=== PATIENT | male | born 1960 | race Caucasian/White ===

== ENCOUNTER 2020-07-21 13:32 | Outpatient (CLI) | payer OTHER, SELFPAY ==
--- NOTE | ~2020-07-21 | XR_ITS ---
XR shoulder LT min 2V 07/21/2020 14:01 Indication: Shoulder pain Procedure: 4 views left shoulder Comparison: No prior studies for comparison. Findings: No fracture or traumatic malalignment. No significant soft tissue abnormality. No foreign b odies. There is anatomic alignment. No erosive changes. No focal soft tissue abnormality. No foreign bodies. Impression: 1: No significant bone or joint abnormality. Reviewed, dictated and finalized at location B. [employer] Impression: 1: No significant bone or joint abnormality.
== END 2020-07-21 13:33 | disposition home or self-care (01) ==
PROVIDERS: PCP Family Medicine; Visit Provider Family Medicine
DX: M25.512 Pain in left shoulder (principal)
CPT/HCPCS: 73030

== ENCOUNTER 2020-10-20 08:19 | Outpatient (CLI) | payer OTHER, SELFPAY ==
--- NOTE | 2020-10-20 08:34 | ECHO_ITS ---
Patient Info Name: Ovi Bullock Age: 60 years : 1960 Gender: Male Ht: 66 in Wt: 155 lbs BSA: 1.82 m2 HR: 49 bpm BP: 138 / 78 mmHg Technical Quality: Good Exam Date: 10/20/2020 8:50 AM Exam Location: [facility] Patient Status: Outpatient Admit Date: 10/20/2020 Staff Ordering Physician: Greyson Truong MD Photoengraving Sketch Maker: Rica Benoit RDCS Attending Provider: Greyson Truong MD Referring Physician: Alexi ROSE; Exam Type: CA echo doppler color flow Study Info Indications - retinal ischemia Complete two-dimensional, color flow and Doppler transthoracic echocardiogram is performed. Summary 1. Complete two-dimensional, color flow and Doppler transthoracic echocardiogram is performed. 2. Left ventricular chamber dimension is normal. 3. The left ventricular diastolic function is normal. 4. Left ventricular systolic function is normal, estimated at 55-60%. 5. E/e' 7 is not elevated. 6. Global longitudinal strain is normal at -19.1%. 7. There is trace tricuspid valve regurgitation. 8. No pulmonary hypertension, estimated pulmonary arterial systolic pressure is 21 mmHg. 9. There is trace pulmonic regurgitation. Left Ventricle E/e' 7 is not elevated. Global longitudinal strain is normal at -19.1%. Left ventricular chamber dimension is normal. Left ventricular systolic function is normal, estimated at 55-60%. The left ventricular diastolic function is normal. Right Ventricle Right ventricular chamber dimension is normal. Right ventricular systolic function is normal. Left Atria Left atrial chamber dimension is normal. Right Atria Right atrial chamber dimension is normal. Aortic Valve The aortic valve is trileaflet. There is no aortic valve stenosis. There is no aortic valve regurgitation. Pulmonic Valve There is trace pulmonic regurgitation. Mitral Valve There is no mitral valve stenosis. There is no mitral valve regurgitation. Tricuspid Valve There is trace tricuspid valve regurgitation. No pulmonary hypertension, estimated pulmonary arterial systolic pressure is 21 mmHg. Pericardium/Pleural There is no pericardial effusion. Inferior Vena Cava Normal inferior vena cava with >50% collapse upon inspiration consistent with normal right atrial pressure, 5 mmHg. Aorta The aortic root size at the sinus of Valsalva is normal. Left Ventricular Outflow Tract Name Value Normal LVOT 2D LVOT Diameter 2.1 cm LVOT Doppler LVOT Peak Gradient 5 mmHg LVOT Mean Gradient 2 mmHg LVOT VTI 23 cm LVOT VTI/AV VTI Ratio 0.9 LVOT Stroke Volume 80 ml LVOT CO 14.6 l/min LVOT CI 8.0 l/min/m2 Pulmonic Valve Name Value Normal PV Doppler
== END 2020-10-20 08:20 | disposition home or self-care (01) ==
PROVIDERS: PCP Family Medicine; Visit Provider Family Medicine
DX: H35.82 Retinal ischemia (principal)
CPT/HCPCS: 93306

== ENCOUNTER → 2020-10-26 14:50 | Outpatient (CLI) | payer OTHER, SELFPAY ==
--- NOTE | ~2020-10-26 | MR_ITS ---
EXAMINATION: MR shoulder LT wo con DATE: 10/26/2020 15:27 INDICATION: Left shoulder pain. TECHNIQUE: Magnetic resonance imaging (MRI) of the left shoulder was performed without intravenous co ntrast. Sequences included axial PD-weighted FS FSE, coronal oblique PD-weighted FS FSE and T2-weight ed FS FSE, and sagittal oblique T2-weighted FS FSE and T1-weighted FSE. COMPARISON: Left shoulder radiographs 07/21/2020 FINDINGS: Coracoacromial arch: The acromion undersurface is curved in morphology (type II). There is severe acromioclavicular joint osteoarthritis. There is mild subacromial/subdeltoid bursitis. Rotator cuff: There is moderate supraspinatus and infraspinatus tendinopathy. Teres minor tendon is normal. There i s severe subscapularis tendinopathy with distal bursal-sided partial-thickness tear. There is bone ma rrow edema in lesser tuberosity. There is no asymmetric fatty atrophy of the rotator cuff muscle chinchilla ies. Biceps tendon and glenoid labrum: Biceps tendon is in bicipital groove. There is mild intra-articular biceps tendinopathy. There is a t ear of superior labrum from 11:00 to 1:00 (SLAP tear). Fluid: There is no glenohumeral joint effusion. Bones/cartilage: Glenoid cartilage is normal. There is partial-thickness cartilage loss of inferior humeral head with mild subchondral edema-like marrow signal intensity. IMPRESSION: 1. Bursal-sided, partial-thickness tear of subscapularis tendon. 2. Mild glenohumeral joint chondrosis. SLAP tear. 3. Severe acromioclavicular joint osteoarthritis. 4. Mild subacromial/subdeltoid bursitis. Reviewed, dictated and finalized at location A.
== END ==
PROVIDERS: PCP Family Medicine; Visit Provider Orthopaedic Surgery
DX: S46.912A Strain of unspecified muscle, fascia and tendon at shoulder and upper arm level, left arm, initial encounter (principal); S43.432A Superior glenoid labrum lesion of left shoulder, initial encounter; M19.012 Primary osteoarthritis, left shoulder; M75.52 Bursitis of left shoulder
CPT/HCPCS: 73221

== ENCOUNTER → 2021-04-10 10:57 | Outpatient (CLI) | payer OTHER, SELFPAY ==
--- NOTE | ~2021-04-10 | US_ITS ---
EXAMINATION: US carotid duplex BI DATE: 04/10/2021 11:39 INDICATION: Retinal ischemia with subjective visual disturbance. TECHNIQUE: Grayscale, color Doppler, and pulsed Doppler images of the cervical carotid arteries were obtained. The degree of vessel stenosis is placed in one of the following categories: normal, <50%, 5 0-69%, >=70% but less than near-occlusion, near-occlusion, or total occlusion. Note that percent sten osis relative to normal distal artery lumen diameter is indirectly measured from velocity measurement s as described by Magnus, et al. Radiology 2003; 229:340-346. COMPARISON: None. FINDINGS: RIGHT: The right common carotid artery (CCA) peak systolic velocity (PSV) is 86 cm/s. The right internal car otid artery (ICA) PSV is 70 cm/s. The right ICA end-diastolic velocity (EDV) is 23 cm/s. The right IC A/CCA PSV ratio is 0.8. Grayscale and color Doppler images yield an estimate of <50% diameter reducti on from plaque in the ICA. The external carotid artery (ECA) PSV is 114 cm/s. There is antegrade flow in the right vertebral artery. LEFT: The left CCA PSV is 126 cm/s. The left ICA PSV is 88 cm/s. The left ICA EDV is 26 cm/s. The left ICA/ CCA PSV ratio is 0.7. Grayscale and color Doppler images yield an estimate of <50% diameter reduction from plaque in the ICA. The ECA PSV is 104 cm/s. There is antegrade flow in the left vertebral arter y. IMPRESSION: 1. <50% stenosis in the right internal carotid artery. 2. <50% stenosis in the left internal carotid artery. Reviewed, dictated and finalized at location A.
== END ==
PROVIDERS: PCP Family Medicine; Visit Provider Family Medicine
DX: I65.23 Occlusion and stenosis of bilateral carotid arteries (principal)
CPT/HCPCS: 93880

== ENCOUNTER 2021-12-20 01:09 | Day surgery (SDC) | payer OTHER, SELFPAY ==
[2021-11-28 12:34] VITALS: BMI 25.9
--- NOTE | 2021-12-19 12:45 | P.PNAN_ITS ---
Anes - Initial Pre Proc Eval Procedure: Operation Date: 12/20/21 08:00 Proposed Procedures p Screening Colonoscopy - Jose Varela MD Date/Time: 12/19/21 12:45 Surgeon: Jose Varela MD Pre Op Diagnosis: neoplasm screening Patient Data Age: 61 Gender: M Height: 1.68 m Weight: 73 kg Allergies Allergy/AdvReac Type Severity Reaction Status Date / Time No Known Allergies Allergy Verified 11/28/21 12:34 Home Medications Medication Instructions Recorded Confirmed Type multivitamin (Daily Multi-Vitamin 1 tablet PO DAILY 09/05/20 11/28/21 History tablet) atorvastatin 10 mg tablet 10 mg PO DAILY #90 tabs 08/08/21 11/28/21 Rx loratadine 10 mg tablet (Claritin) 10 mg PO DAILY PRN allergic 11/06/21 11/28/21 History symptoms sodium sul 1.479 gram-potas ch See Rx Instructions PO PER PKG DIR 11/09/21 Rx 0.188 gram-magnes sul 0.225 gram #24 tabs tablet (Sutab) Patient hx anesthesia problems: none Family hx anesthesia problems: none Results Review: All pre-operative results and documents have been reviewed as part of the pre- operative evaluation. 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 Carotid Doppler study on 04/10/2021 unremarkable with less than 50% lesion bilaterally Overweight (BMI 25.0-29.9) 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 Family History Family History Grandparent Family history of cardiovascular disease, Onset Age: 60 Father Family history of lung cancer, Onset Age: 85 Social History Social History (Reviewed 11/06/21 @ 16:01 by RIKY Cooney Smoking status: Never smoker Alcohol intake: current Drinks per week: 2 Substance use: never Substance use type: does not use Living arrangements: with family Spiritual care concerns: No Anes - Eval Final PreProcedure Day of Procedure 12/19/21 12:45 Patient weight: overweight Heart: regular rate and rhythm Lungs: clear to auscultation and normal air movement Airway: Mallampati scale class II Neurological: alert and oriented Last oral intake: >/= 8 hours ASA classification: II Emergent: no Anesthetic plan: proceed Anesthesia type and monitoring: general GIVS Results Review: All pre-operative results and documents have been reviewed as part of the pre- operative evaluation. Informed Consent: The patient's anesthetic plan and its attendant risks and benefits were discussed with the patient/family/POA. Questions were solicited and answers provided to the satisfaction of the patient/family/POA.
[2021-12-20 06:48] VITALS: BP 135/79; PULSE 49; RESP 18; TEMP 36.6; O2SAT 100
[2021-12-20] MEDS: LACTATED RINGERS 1,000 ML 150 ML IV CONT (06:54)
--- NOTE | 2021-12-20 07:56 | PM.IMHP ---
H&P: HPI History of Present Illness Date/Time: 12/20/21 07:56 Chief Complaint: Neoplasia screening. Narrative: This is a 61-year-old white male patient presents for screening colonoscopy. Patient reports his current weight appetite bowel movements are normal. He denies abdominal pain. Patient has had no bleeding. Family history is noncontributory. Previous colonoscopy 10 years ago was unremarkable. Patient presents today for screening colonoscopy. Review of Systems Review of Systems: Review of systems noncontributory. 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 Carotid Doppler study on 04/10/2021 unremarkable with less than 50% lesion bilaterally Overweight (BMI 25.0-29.9) 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 Family History Family History Grandparent Family history of cardiovascular disease, Onset Age: 60 Father Family history of lung cancer, Onset Age: 85 Social History Social History Smoking status: Never smoker Alcohol intake: current Drinks per week: 2 Substance use: never Substance use type: does not use Living arrangements: with family Spiritual care concerns: No Meds Home Medications and Allergies Home Medications Medication Instructions Recorded Confirmed Type multivitamin (Daily Multi-Vitamin 1 tablet PO DAILY 09/05/20 11/28/21 History tablet) atorvastatin 10 mg tablet 10 mg PO DAILY #90 tabs 08/08/21 11/28/21 Rx loratadine 10 mg tablet (Claritin) 10 mg PO DAILY PRN allergic 11/06/21 11/28/21 History symptoms sodium sul 1.479 gram-potas ch See Rx Instructions PO PER PKG DIR 11/09/21 Rx 0.188 gram-magnes sul 0.225 gram #24 tabs tablet (Sutab) Allergies Allergy/AdvReac Type Severity Reaction Status Date / Time No Known Allergies Allergy Verified 11/28/21 12:34 Vital Signs Vital Signs - 24 hr 12/20/21 06:48 Temperature 97.9 F Pulse Rate 49 L Respiratory Rate 18 Blood Pressure 135/79 Pulse Oximetry 100 Oxygen Delivery Room Air Exam Narrative: Physical exam reveals patient be alert. Vital signs stable. HEENT exam is unremarkable. Patient is anicteric. Lungs are clear to auscultation and percussion. Heart is without murmur or extra sounds. Abdominal exam bowel sounds are present soft nontender with no organomegaly. Digital external rectal exam is normal. Assessment and Plan Assessment and plan (1) Encounter for screening colonoscopy: Code(s): Z12.11 - Encounter for screening for malignant neoplasm of colon Status: Acute Assessment and Plan: Patient presents today for screening colonoscopy. He appears to be at average risk for colon polyps.
[2021-12-20] MEDS: SIMETHICONE ORAL SUSPENSION 20 MG/0.3 ML 30 ML BOTTLE 0.6 ML IRRIGATION (08:14)
[2021-12-20 08:25] VITALS: BP 99/60; PULSE 42; RESP 13; O2SAT 98
[2021-12-20 08:35] VITALS: BP 112/62; PULSE 40; RESP 13; O2SAT 100
[2021-12-20 08:45] VITALS: BP 112/77; PULSE 41; RESP 20; O2SAT 100
== END 2021-12-20 08:49 | disposition home or self-care (01) ==
PROVIDERS: PCP Family Medicine; Visit Provider Internal Medicine Gastroenterology
PROC: 0DJD8ZZ Inspection of Lower Intestinal Tract, Via Natural or Artificial Opening Endoscopic (ICD-10-PCS; CPT 45378; principal; 2021-12-20 08:00)
DX: Z12.11 Encounter for screening for malignant neoplasm of colon (principal); D12.5 Benign neoplasm of sigmoid colon; K64.8 Other hemorrhoids; E78.2 Mixed hyperlipidemia; Z86.16 Personal history of COVID-19
CPT/HCPCS: 45385; 88305; J2704; J7120

== ENCOUNTER 2023-08-05 10:39 | Emergency (ER) | payer OTHER, SELFPAY ==
--- NOTE | ~2023-08-05 | XR_ITS ---
EXAMINATION: XR knee RT min 4V DATE: 08/05/2023 11:12 INDICATION: Medial right knee pain. TECHNIQUE: 4 views of right knee including standing views were obtained. COMPARISON: None. FINDINGS: Bone alignment is normal. No fracture. There is mild osteoarthritis of lateral and patellof emoral compartments. No knee joint effusion. IMPRESSION: 1. Mild right knee osteoarthritis. Reviewed, dictated and finalized at location A. [employer]
[2023-08-05 10:52] VITALS: BP 116/71; PULSE 50; RESP 16; TEMP 36.6; O2SAT 96
--- NOTE | 2023-08-05 10:54 | ED.GENADULT ---
HPI - General Adult General Chief complaint: Extremity Problem,Nontraumatic Stated complaint: rt knee pain Source: patient, RN notes reviewed and old records reviewed Mode of arrival: ambulatory Limitations: no limitations History of Present Illness HPI narrative: 63-year-old male patient presents to [facility] with complaints right knee intermittent pain. Patient states started Friday when patient was jogging, patient states stopped to wait for car and was walking and felt knee give out but patient denies falling. Patient states call PCP and talked to the nurse who told to come here for an x-ray. Patient has not tried anything for symptoms. Patient states ran 6 miles on Friday without difficulty. Related Data Home Medications Medication Instructions Recorded Confirmed multivitamin (Daily Multi-Vitamin 1 tablet PO DAILY 09/05/20 08/05/23 tablet) loratadine 10 mg tablet (Claritin) 10 mg PO DAILY PRN allergic 11/06/21 08/05/23 symptoms Allergies Allergy/AdvReac Type Severity Reaction Status Date / Time No Known Allergies Allergy Verified 08/05/23 10:48 Review of Systems Constitutional: Constitutional: Reports no additional constitutional complaints, Denies body ache(s), Denies chills, Denies fatigue, Denies fever(s) and Denies headache(s) Eyes: Eyes: Reports no additional eye complaints and Denies blurry vision ENT: Reports system reviewed and no additional complaints, except as documented, Denies vertigo, Denies dizziness, Denies ear discharge, Denies otalgia, Denies facial pain, Denies headache(s), Denies nasal congestion, Denies nasal discharge, Denies sinus pain, Denies sinus pressure and Denies sore throat Cardiovascular: Cardiovascular: Reports no additional cardiovascular complaints, Denies chest pain, Denies chest pain at rest, Denies rapid heart rate and Denies dyspnea Respiratory: Respiratory: Reports no additional respiratory complaints, Denies chest congestion, Denies cough, Denies pain on inspiration, Denies pain with cough and Denies dyspnea Gastrointestinal: Gastrointestinal: Denies abdominal pain, Denies diarrhea, Denies nausea and Denies vomiting Musculoskeletal: Musculoskeletal: Reports arthralgias Comments: intermittent Right knee pain Integumentary/Breasts: Skin/Breast: Denies rash Neurologic: Reports system reviewed and no additional complaints, except as documented, Denies vertigo, Denies dizziness and Denies headache(s) Endocrine: Endocrine: Denies fatigue PMFSH Past Medical History Medical History Acute sinusitis, unspecified Chronic left shoulder pain Colon cancer screening COVID-19 March, COVID-19 (~06/2021) 2nd episode mild symptoms, fully vaccinated Elevated TSH TSH normal at 3.97 on 04/14/2023. Encounter for wellness examination in adult Loss, sense of, smell Mixed hyperlipidemia total cholesterol 199, HDL excellent and 82, triglycerides 74 and LDL 101 on work physical labs on 04/16/2021 with glucose 100. Cholesterol 182, triglycerides 58, HDL 70, LDL 70 with ratio of 2.6 on 04/14/2023. 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 Seborrheic keratosis. Ocular ischemic syndrome Carotid Doppler study on 04/10/2021 unremarkable with less than 50% lesion bilaterally Overweight (BMI 25.0-29.9) Polyp of colon (12/20/21) small sessile polyp, tubular adenoma,of the sigmoid colon on colonoscopy 12/20/[address] Varela with repeat colonoscopy in 2 years. 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
== END 2023-08-05 11:26 | disposition home or self-care (01) ==
PROVIDERS: Emergency Provider Registered Nurse; PCP Family Medicine
DX: M17.11 Unilateral primary osteoarthritis, right knee (principal); E78.5 Hyperlipidemia, unspecified; Z85.828 Personal history of other malignant neoplasm of skin; Z86.16 Personal history of COVID-19
CPT/HCPCS: 73564; 99213; G0463

== ENCOUNTER 2023-09-26 07:04 | Outpatient (CLI) | payer OTHER, SELFPAY ==
--- NOTE | ~2023-09-26 | MR_ITS ---
MRI of the right knee Clinical history: Effusion Technique: Coronal proton density and proton density-weighted images, sagittal proton-density and T2 fat-sat images, and axial proton-density fat-saturated images were acquired. Findings: Anterior and posterior cruciate ligaments are intact. Medial collateral ligament and the la teral collateral ligament complex are intact. Popliteus tendon is intact. Medial and lateral menisci are intact, without evidence of tear. 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 Articular cartilage in the lateral compartment is relat ively well-preserved. Articular cartilage in the patellofemoral compartment is also well preserved. Extensor mechanism is intact. No significant joint effusion or 's cyst. Impression: 1.4 x 1.3 cm grade 4 chondral lesion at the central aspect of the medial femoral condyle with subjace nt reactive marrow edema. Reviewed, dictated and finalized at location . Impression: 1.4 x 1.3 cm grade 4 chondral lesion at the central aspect of the medial femora l condyle with subjacent reactive marrow edema.
== END 2023-09-26 07:05 ==
LOC: MICIMG 07:05
PROVIDERS: PCP Family Medicine; Visit Provider Orthopaedic Surgery
DX: M25.461 Effusion, right knee (principal); M94.261 Chondromalacia, right knee
CPT/HCPCS: 73721

== ENCOUNTER 2024-10-11 13:00 | Emergency (ER) | payer OTHER, SELFPAY ==
[2024-10-11 13:09] VITALS: BP 99/77; PULSE 77; RESP 20; TEMP 36.8; O2SAT 98
--- NOTE | 2024-10-11 16:26 | ED_ITS ---
HPI - URI/Sore Throat General Chief Complaint: Upper Respiratory Infection Stated Complaint: Cough Time Seen by Provider: 10/11/24 13:50 Source: patient and RN notes reviewed Mode of arrival: ambulatory Limitations: no limitations History of Present Illness HPI Narrative: 64-year-old male presents Express Care complaining of cough and congestion for 6 weeks. Patient thought it was allergies however his symptoms are not getting any better. States his congestion feels worse. Patient reports a dry nonproductive cough. Patient says worse at night when he is lying flat. Patient has not been using anything [id number]. Patient denies any other upper respiratory symptoms, fevers, chills, body aches. Related Data Home Medications ?Medication ?Instructions ?Recorded ?Confirmed ?Last Taken ?Type multivitamin (Daily Multi-Vitamin 1 tablet PO DAILY 09/05/20 06/29/24 Unknown History tablet) loratadine 10 mg tablet (Claritin) 10 mg PO DAILY PRN allergic 11/06/21 06/29/24 Unknown History symptoms acetaminophen 500 mg tablet mg 10/11/24 Unknown History aspirin 81 mg tablet,delayed mg 10/11/24 Unknown History release meloxicam 15 mg tablet mg 10/11/24 Unknown History pantoprazole 20 mg tablet,delayed mg PO 10/11/24 Unknown History release pregabalin 75 mg capsule mg 10/11/24 Unknown History Allergies Allergy/AdvReac Type Severity Reaction Status Date / Time No Known Allergies Allergy Verified 10/11/24 13:26 Review of Systems Review of Systems: CONSTITUTIONAL: Denies fever, chills, or sweats. EYES: Denies visual changes, redness, or discharge. ENT: Denies rhinorrhea, sore throat, or otalgia. Positive for congestion CARDIOVASCULAR: Denies chest pain, palpitations, or edema. RESPIRATORY: Positive for cough. Negative for dyspnea. GASTROINTESTINAL: Denies abdominal pain, nausea, vomiting, or diarrhea. GENITOURINARY: Denies dysuria or hematuria. SKIN: Denies rash or itching. MUSCULOSKELETAL: Denies back pain, joint pain, or myalgia. NEUROLOGIC: Denies headache, numbness, or weakness. PSYCHIATRIC: Denies anxiety or depression. All other systems reviewed are negative, except as documented in HPI. [facility] Past Medical History Medical History BMI 27.0-27.9,adult Osteoarthritis of right knee Polyp of colon (12/20/21) small sessile polyp, tubular adenoma,of the sigmoid colon on colonoscopy 12/20/[address] Varela with repeat colonoscopy in 2 years. 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 Seborrheic keratosis. 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 TSH elevated at 6.85 on 06/03/2024. Encounter for wellness examination in adult COVID-19 March, Acute sinusitis, unspecified Loss, sense of, smell Suspicious nevus Mixed hyperlipidemia total cholesterol 199, HDL excellent and 82, triglycerides 74 and LDL 101 on work physical labs on 04/16/2021 with glucose 100. Cholesterol 182, triglycerides 58, HDL 70, LDL 70 with ratio of 2.6 on 04/14/2023. Cholestero l 190, HDL 59, triglycerides 98, LDL 111 with ratio 3.2 on 06/03/2024. Family History Family History Grandparent Family history of cardiovascular disease, Onset Age: 60 Father Family history of lung cancer, Onset Age: 85 Social History Social History Smoking status: Never smoker Alcohol intake: current Drinks per week: 2 Substance use: never Substance use type: does not use Lack of Transportation: No Current Housing: Decline to Answer Concerned About Future Housing: Decline to Answer Difficulty Paying Gas/Electric Bills: Decline to Answer Difficulty Paying for Meds: Decline to Answer Currently Unemployed: Decline to Answer Education: Decline to Answer Difficulty w/ Childcare or Family Care: Decline to Answer Living arrangements: with family Spiritual care concerns: No Comments At the time of my signature, I reviewed and agree with the nursing past medical, surgical, social, and family history. There is no relevant family history pertinent to the patient complaint. Exam Narrative: GENERAL: This is a well-nourished, well-developed adult, in no apparent distress. They are non ill-appearing, nontoxic appearing. HEAD: normocephalic, atraumatic. EYES: Sclera clear/white. Conjunctiva normal. Vision is grossly intact. Extraocular movements intact EARS: External ears normal, auditory canals clear and without drainage, TMs normal without perforation. Hearing grossly intact. NOSE: External nose normal with no obvious nasal discharge, nasal turbinates erythematous, no rhinorrhea. Maxillary sinus tenderness to palpation. THROAT: Mucous membranes moist, posterior pharynx clear, without erythema or swelling. Uvula midline. Postnasal drip present. NECK: Neck supple, non-tender without lymphadenopathy, masses or thyromegaly. CARDIOVASCULAR: Regular rate and rhythm without murmurs, gallops, or rubs. RESPIRATORY: Clear to auscultation. Breath sounds equal bilaterally. No wheezes, rales, or rhonchi. SKIN: warm, Dry, intact with no suspicious lesions or rash, good texture and turgor. NEURO: awake, alert, and oriented to person, place and time. There were no obvious focal neurologic abnormalities. EXTREMITIES: No joint tenderness, effusion, or edema noted. BACK: Nontender without deformity. No CVA tenderness. Course Course Emergency Course: Portions of this record may have been created with voice recognition software Level of Care: Express Care Visit Vital Signs Vital signs: Vital Signs Oxygen Delivery Room Air 10/11/24 13:05 Temperature 98.3 F 10/11/24 13:09 Pulse Rate 77 10/11/24 13:09 Respiratory Rate 20 10/11/24 13:09 Blood Pressure 99/77 L 10/11/24 13:09 Pulse Oximetry 98 10/11/24 13:09 Oxygen Delivery Room Air 10/11/24 13:09 Reviewed MDM - URI/Sore Throat MDM Narrative Medical decision making narrative: Given patient's length of symptoms and physical exam findings it is likely the patient has a bacterial sinusitis. Will treat empirically with Augmentin. Discussed physical exam findings. Advised supportive measures and signs/symptoms to go to the ER. Pt is appropriate for outpt treatment and f/u. Differential Diagnosis Differential diagnosis: Likely upper respiratory infection, sinusitis and bronchitis Critical Care Time Critical Care Time Critical Care Time: No Discharge Plan Discharge Clinical Impression: Sinusitis Qualifiers: Sinusitis location: unspecified location Chronicity: acute Recurrence: not specified as recurrent Qualified Code(s): J01.90 - Acute sinusitis, unspecified Patient Disposition: Home Condition: Stable Instructions: Antibiotic Form, Sinusitis (ED) Additional Instructions: Take the antibiotics as directed and complete the course even if you start to feel better. You may use a Neti pot saline rinse 3 times a day with lukewarm distilled water. Continue to take Tylenol or Motrin for pain. Use a humidifier or vaporizer at night. Drink plenty of water. 8-10 glasses per day. Use flonase 2 times per day for 5 days then as needed Take mucinex 2 times per day and be sure to take with 8oz of water. Follow up with Primary provider if not getting better. If her symptoms worsen or he develops any chest pain or shortness of breath, or fevers please go to the ER immediately. Patient Language: Syrian Prescriptions: New amoxicillin-pot clavulanate 875-125 mg tablet 1 tablet PO Q12H 7 Days Qty: 14 0RF No Action meloxicam 15 mg tablet aspirin 81 mg tablet,delayed release (DR/EC) acetaminophen 500 mg tablet pantoprazole 20 mg tablet,delayed release (DR/EC) PO pregabalin 75 mg capsule loratadine [Claritin] 10 mg tablet 10 mg PO DAILY PRN (Reason: allergic symptoms) multivitamin [Daily Multi-Vitamin] Tablet 1 tablet PO DAILY atorvastatin 10 mg tablet 10 mg PO DAILY Qty: 90 3RF Follow-up/Referrals: PHYSICIAN,BUSINESS UNIT DIRECTOR [Primary Care Provider] - Time of Disposition: 14:00
== END 2024-10-11 14:06 | disposition home or self-care (01) ==
DX: J01.90 Acute sinusitis, unspecified (principal); E78.2 Mixed hyperlipidemia; M17.11 Unilateral primary osteoarthritis, right knee; H35.82 Retinal ischemia; Z86.16 Personal history of COVID-19; Z85.828 Personal history of other malignant neoplasm of skin
CPT/HCPCS: 99213; G0463

== ENCOUNTER → 2024-11-16 10:57 | Outpatient (CLI) | payer OTHER, SELFPAY ==
--- NOTE | ~2024-11-16 | XR_ITS ---
Clinical Indication: Chronic cough PA and lateral views of the chest: Comparison: None Findings: The lungs are clear, without evidence of focal consolidation or pleural effusion. Cardiome diastinal silhouette is within normal limits. Bones and soft tissues are unremarkable. Impression: Normal chest. Reviewed, dictated and finalized at location . Impression: Normal chest.
--- NOTE | ~2024-11-16 | XR_ITS ---
Left Shoulder Technique: AP and axillary views were obtained. Clinical History: Pain, injury Findings: No fracture or dislocation is seen. Osseous alignment is anatomic. The glenohumeral and acr omioclavicular joint spaces are preserved. Soft tissues are unremarkable. Impression: Unremarkable left shoulder radiographs. Reviewed, dictated and finalized at [facility]. Impression: Unremarkable left shoulder radiographs.
--- OUTSIDE RECORDS SUMMARY | 2024-11-16 12:19 | XMS_ITS | Continuity of Care Document ---
Author Organization [facility] Address [address] [place] [address] Phone Care Team Providers Care Design Printer Balloon Name Role Phone Hi Whaley MD Unavailable Unavailable Allergies, Adverse Reactions, Alerts Substance Reaction Status Criticality No Known Allergies Active No Inform ation Medications Medication Instructions Dosage Effective Dates (start - stop) Status Comments atorvastatin 10 mg tablet - Acti ve Procedures Procedure Date Office/outpatient visit,[facility] 2020 Advance Directives Directive Yes / No Effective Date File Name No Information Encounters Encounter Description Practice Location Reason(s) For Visit Diagnoses Date Provider Providers Copied on Encounter [facility], [address] [place] [address], [id number], tel:[phone] [facility] No Information 1 Jovana Do. [address] [place] [address], [id number] , [place]. 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 [address] [place] [address], [id number] , [place]. 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
--- OUTSIDE RECORDS SUMMARY | 2024-11-16 12:19 | XMS_ITS | Clinical Summary ---
Author Organization [facility] Address [address] [place] [address] Care Team Providers Care Roentgenology Teacher Name Role Phone Greyson Truong MD Primary Care Provider [phone] DemLeslye garcia OD Unavailable [phone] Allergies No known active allergies Medications atorvastatin (LIPITOR) 10 mg tablet Take 1 tablet (10 mg total) by mouth every morning 09/06/2020 Active acetaminophen (TYLENOL) 500 mg tablet Take 2 tablets (1,000 mg total) by mouth every 8 (eight) hours 90 tablet 1 08/26/[address] (PROTONIX) 20 mg EC tablet Take 1 tablet (20 mg total) by mouth daily 30 tablet 08/26/2024 Active Active Problems Problem Noted Date Diagnosed Date Osteoarthritis of right knee , unspecified osteoarthritis type 08/26/2024 Primary osteoarthritis of right knee 06/22/2024 PVD (posterior vitreous detachment), right 04/18 Assessment & Plan (04/23/2024 8:24 AM WELT SLASHER): No flashes No RT/RD S/s of RD/RT discussed Assessment & Plan (04/18/2023 8:31 AM WELT SLASHER): No flashes No RT/RD S/s of RD/RT discussed Retinal hemorrhage, left eye 05/29/2020 Assessment & Plan (04/23/2024 8:24 AM WELT SLASHER): Mild peripheral IRH stable for many years Assessment & Plan (04/18/2023 8:31 AM WELT SLASHER): Mild peripheral IRH stable for many years Assessment & Plan (04/05/2022 9:02 AM CDT): The hemorrhage has resolved He is now on statins Assessment & Plan (03/30/2021 8:31 AM CDT): Seen recently with IRH OS, 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 He had a similar episode of peripheral IRH OD a few years ago that resolved Per patient CARDIAC ECHO was unremarkable. I had recommended getting carotid dopplers to evaluate perfusion, but patient states that the mental health technician performed a second cardiac echo. Patient will work with his PCP to obtain carotid dopplers. If necessary we can do an FA in the future but at this time I recommend observation Assessment & Plan (12/15/2020 8:48 AM CDT): I agree with DR Landis that this may represent a Valsalva retinopathy and is likely to resolve. He had a similar episode of peripheral IRH OD a few years ago that resolved Per patient CARDIAC ECHO was unremarkable I recommend getting carotid dopplers to evaluate perfusion If necessary we can do an FA in the future but at this time I recommend observation Assessment & Plan (05/29/2020 2:09 PM WELT SLASHER): Periphery left eye (OS) only +also noted on exams in [address] 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 Will notify PCP; consider carotid doppler and recheck labs . Hx of strabismus 05/29/2020 Assessment & Plan (05/29/2020 2:05 PM WELT SLASHER): Sp strab sx X 2 both eyes (OU) at age 6 +RET on exam today -no diplopia -follow Peroneal tendinitis of right lower extremity Overview (02/23/2019): Added automatically from request for surgery [id number] Tendon tear 02/23/2019 Overview (02/23/2019): Added automatically from request for surgery [id number] Instability of right ankle joint 02/23/2019 Overview (02/23/2019): Added automatically from request for surgery [id number] Acquired cavovarus deformity of right foot 02/23 Overview (02/23/2019): Added automatically from request for surgery [id number] Bilateral degenerative progressive high myopia 0 09/18/2017 Glaucoma suspect of both eyes 09/18/2017 Nuclear sclerotic cataract of both eyes 09/19/19 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 Vitreous syneresis 10/13/2015 Assessment & Plan (05/29/2020 2:04 PM WELT SLASHER): With myopia -retina flat and attached both eyes (OU) -pt ed s/s retinal detachment (RD); RTC joao if noted Myopia 01/24/2012 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 Assessment & Plan (05/29/2020 2:04 PM WELT SLASHER): right eye (OD); stable -follow annually Encounters Date Type Department Care Team Description 09/24/2024 9:15 AM CDT Office Visit [facility] [address] [place] [address] Medical Office Building [address] [place] [id number] Sang Hogue MD Orthopedic aftercare (Primary Dx); History of total knee arthroplasty, right 09/24/2024 8:34 AM CDT - 09/24/2024 11:59 PM CDT Hospital Encounter [id number] [address] [place] [address] [address] [place] [id number] History of total knee arthroplasty, right; Orthopedic aftercare Discharge Disposition: Discharge to home or self care 08/26/2024 10:45 AM CDT - 08/26/2024 1:15 PM CDT Surgery [facility] [address] [address] MCD[place]EL, [place] [address] Sang Hogue MD ARTHROPLASTY KNEE - UNICOMPARTMENTAL - AN[employer]EL[employer] ROBOT[employer] ARM DILMA 08/26/2024 10:05 AM CDT Anesthesia Event [facility] [address] [address] MCDANIEL, [place] [address] Silvino Fu MD Thomas, Karen D., BRUSH WORKER 08/26/2024 7:51 AM CDT - 08/26/2024 2:52 PM CDT Hospital Encounter [facility] [address] [address] [place]CDANIEL, [place] [address] Sang Hogue MD Primary osteoarthritis of right knee (Primary Dx) Discharge Disposition: Discharge to home or self care 08/19/2024 Orders Only [facility] [address] [place] [address] Medical Office Building [address] [place] [address] Sang Hogue MD Acute pain of right knee (Primary Dx) from Last 3 Months Immunizations Immunization Administration Dates Next Due Hep A, Adult 03/29/2014,03/26/1996 Hep B Vaccine 03/23/2007,09/25/2006,08/19/2006 Influenza, Quadrivalent, Spl it, Preservative Free, Intramuscular 02/21/2020 Influenza, Trivalent, IM (MDV) 03/29/2014,2011 Tdap 03/29/2014 Surgical History Surgery Date Site/Laterality Comments EYE SURGERY SHOULDER SURGERY 06/09/2012 - 06/08/2013 Right APPENDECTOMY late 80s TENDON REPAIR Right Medical History Medical History Date Comments Seasonal allergies Hyperlipidemia Family History Medical History Relation Name Comments Glaucoma Brother Family history of glaucoma - (Added by TW Conv) Cancer Father Dad Family history of cancer - (Added by TW Conv) Heart disease Father Dad Lung disease Father Dad Macular degeneration Father Dad Family history of macular degeneration - (Added by TW Conv) Heart disease Mother Mom Diabetes Mother's Brother Uncle Family hist ory of diabetes mellitus - (Added by TW Conv) Anesthesia problems Neg Hx Stroke Neg Hx Relation Name Status Comments Brother Father Dad Mother Mom Mother's Brother Uncle Social History Tobacco Use Types Packs/Day Years Used Date Smoking Tobacco: Never Cigarettes Smokeless Tobacco: Never Tobacco Cessation:Counseling Given: Not Answered Alcohol Use Standard Drinks/Week Comments Yes 3 (1 standard drink = 0.6 oz pur e alcohol) AUDIT-C Answer Date Recorded Q1: How often do you have a drink containing alc ohol? 2-4 times a month 08/26/2024 Q2: How many drinks containi ng alcohol do you have on a typical day when you are drinking? 1 or 2 08/26/2024 Q3: How often do you have si x or more drinks on one occasion? Never 08/26/2024 Personal Safety Answer Date Recorded Have you ever been in or are you currently in a harmful physical or emotional relationship or is someone making you feel afraid or unsafe? Denies 08/26/2024 Sex and Gender Information Value Date Recorded Sex Assigned at Not on file Legal Sex Male 3:55 AM WELT SLASHER Gender Identity Not on file Sexual Orientation Not on file Obstetrics History Last Filed Vital Signs Vital Sign Reading Time Taken Comments Blood Pressure 114/68 08/26/2024 2:45 PM CDT Pulse 87 08/26/2024 2:45 PM CDT Temperature 36.7 C (98.1 F) 08/26/2024 2:45 PM CDT Respiratory Rate 24 08/26/2024 2:00 PM CDT Oxygen Saturation 94% 08/26/2024 2:45 PM CDT Inhaled Oxygen Concentration - - Weight 77.1 kg (170 lb) 08/26/2024 7:57 AM CDT Height 167.6 cm (5' 6) 08/26/2024 7:57 AM CDT Body Mass Index 27.44 08/26/2024 7:57 AM CDT Plan of Treatment Health Maintenance Due Date Last Done Comments Colon Cancer Screening-Colonoscopy 1961 Depression Screening 1961 Hepatitis C Screening 1961 Prostate Cancer Screening-PSA 1961 Regular Well Visit/Exam 18-64 1979 Zoster Vaccine (1 of 2) 2011 DTaP/Tdap/Td Vaccine (2 - Td or Tdap) 03/29/2024 03/29/2014 Hepatitis B Screening Completed 03/23/2007 , 09/25/2006, 08/19/2006 Influenza Vaccine Completed 06/20/2024, , 03/29/2014, Additional history exists Pneumococcal vaccine <65 Aged Out No longer eligible based on patient's age to complete this topic Medical Devices Implanted Type Area Pulpwood Cutter Device Identifier Shelf Expiration Date Model / Serial / Lot [employer] Simplex P Full Dose Radiopaque Preblend Cement Bone Tobramycin 6197-9-010 - [id number] Implanted:Qty: 1 on 08/26/2024 at [facility] Right: Knee [employer] 10/06/2025 [id number] 0 / / [id number] [employer] Insert Mck Tibial X3 Onlay Size 4 X 8mm [id number] - [id number] Implanted:Qty: 1 on 08/26/2024 at [facility] Right: Knee [employer] 04/27/2029 [id number] / / [id number] [employer] Cmpnt Fem 5 Std Knee Condyle Right Medial Left Lat [id number] - [id number] Implanted:Qty: 1 on 08/26/2024 at [facility] Right: Knee [employer] 06/30/2029 [id number] / [id number] / [id number] [employer] Tibial Baseplate Knee Right Medial Left Lateral Fixed Unicompartmental Restoris Size 4 [id number] - [id number] Implanted:Qty: 1 on 08/26/2024 at [facility] Right: Knee [employer] 05/13/2029 [id number] / [id number] / [id number] Procedures Procedure Name Priority Date/Time Associated Diagnosis Comments XR KNEE RIGHT 3 VIEWS Schedule Routine, Read Routine (OP Routine) 09/24/2024 8:56 AM CDT History of total knee arthroplasty, right Orthopedic aftercare XR KNEE RIGHT 1 OR 2 VIEWS ED Urgent/IP Urgent 08/26/2024 12:20 PM CDT ARTHROPLASTY KNEE - UNICOMPARTMENTAL - ANGELES ROBOTIC ARM DILMA 08/26/2024 10:09 AM CDT Primary osteoarthritis of right knee Special Needs [employer] ND AN PROCEDURE PLACEHOLDER Routine 08/26/2024 10:00 AM CDT ND AN PROCEDURE PLACEHOLDER Routine 08/26/2024 9:59 AM CDT ND AN PROCEDURE PLACEHOLDER Routine 08/26/2024 9:59 AM CDT from Last 3 Months Results * XR Knee Right 3 Views (09/24/2024 8:56 AM CDT) Anatomical Region Laterality Modality Lower Extremities, Knee Right Computed Radiography 09/24/2024 11:0 5 AM CDT Impressions 09/24/2024 12:23 PM CDT 1. Unchanged medial compartment unicompartmental right knee arthroplasty in near-anatomic alignment. Dictated by: Ovi Wills M.D. The radiology attending physician has personally reviewed this study, and had reviewed and/or edited this written report and agrees with it. Electronically signed by: Bladimir Crump D.O. Narrative 09/24/2024 12:23 PM CDT EXAMINATION: XR KNEE RIGHT 3 VIEWS HISTORY: Right knee pain. FINDINGS: 3 radiographs of the right knee are submitted for interpretation with comparison made to 08/26/2024. Medial compartment unicompartmental right knee arthroplasty in near-anatomic alignment. The instrumentation appears intact. No periprosthetic osteolysis or fracture. No acute fracture. Moderate knee effusion. Resolved postsurgical subcutaneous gas. Procedure Note Bladimir Crump DO - 09/24/2024 EXAMINATION: XR KNEE RIGHT 3 VIEWS HISTORY: Right knee pain. FINDINGS: 3 radiographs of the right knee are submitted for interpretation with comparison made to 08/26/2024. Medial compartment unicompartmental right knee arthroplasty in near-anatomic alignment. The instrumentation appears intact. No periprosthetic osteolysis or fracture. No acute fracture. Moderate knee effusion. Resolved postsurgical subcutaneous gas. IMPRESSION: 1. Unchanged medial compartment unicompartmental right knee arthroplasty in near-anatomic alignment. Dictated by: Ovi Wills M.D. The radiology attending physician has personally reviewed this study, and had reviewed and/or edited this written report and agrees with it. Electronically signed by: Bladimir Crump D.O. Sang Hogue MD IMG XR PROCEDURES Final Result * XR Knee Right 1 or 2 View (08/26/2024 12:20 PM CDT) Anatomical Region Laterality Modality Lower Extremities, Knee Right Computed Radiography 08/26/2024 12:4 9 PM CDT Impressions 08/26/2024 12:49 PM CDT 1. New medial unicompartmental right knee arthroplasty in expected position. Electronically signed by: Yair Joseph D.O. Narrative 08/26/2024 12:49 PM CDT EXAMINATION: XR KNEE RIGHT 1 OR 2 VIEWS HISTORY: post-op COMPARISON: 09/05/2024 FINDINGS: New medial unicompartmental right knee arthroplasty in expected position. No periprosthetic fracture or lucency. Small joint effusion. Small amount of postsurgical gas. Procedure Note Yair Joseph DO - 08/26/2024 EXAMINATION: XR KNEE RIGHT 1 OR 2 VIEWS HISTORY: post-op COMPARISON: 09/05/2024 FINDINGS: New medial unicompartmental right knee arthroplasty in expected position. No periprosthetic fracture or lucency. Small joint effusion. Small amount of postsurgical gas. IMPRESSION: 1. New medial unicompartmental right knee arthroplasty in expected position. Electronically signed by: Yair Joseph D.O. Mayra Snell MD IMG XR PROCEDURES Final Re sult * ND AN PROCEDURE PLACEHOLDER (08/26/2024 10:00 AM CDT) Narrative Silvino Fu MD - 08/26/2024 10:00 AM CDT Silvino Fu MD 08/26/2024 11:10 AM Peripheral Block Patient location during procedure: pre-op holding Reason for block: post-op pain management per surgeon request Ultrasound image in chart or stored: yes Block type: single shot Laterality: right Block type: IPACK Staff: Supervising provider: Silvino Fu MD Placed by: Fellow: Thanh Rainey MD Procedure prep: Preprocedure checklist: patient identified, procedure contraindications assessed, site marked, procedure consent, surgical consent, IV checked, risks, benefits and alternatives discussed, monitors and equipment checked and timeout performed Patient position: supine Procedure performed while patient: sedate with meaningful contact Monitoring: ECG, oximetry and blood pressure Supplemental O2: nasal cannula Prep solution: chlorhexidine/alcohol PPE: provider hat/mask, sterile gloves and sterile probe cover and gel Peripheral nerve block: Technique: ultrasound guided Needle type: insulated, short-bevel and echogenic Needle gauge: 20 G Needle length: 100 mm Injection assessment: injection made incrementally with constant monitoring, local visualized surrounding nerve on ultrasound, negative aspiration for heme, no paresthesias noted, normal resistance to injection and see flowsheet for medication details Assessment: Block success: full evaluation pending Events: patient tolerated procedure well with no complications Thanh Rainey MD ANESTHESIA ORDERABLES Final R esult * ND AN PROCEDURE PLACEHOLDER (08/26/2024 9:59 AM CDT) Narrative Silvino Fu MD - 08/26/2024 9:59 AM CDT Silvino Fu MD 08/26/2024 11:10 AM Peripheral Block Patient location during procedure: pre-op holding Reason for block: post-op pain management per surgeon request Ultrasound image in chart or stored: yes Block type: single shot Laterality: right Block type: saphenous nerve block - subsartorial approach Staff: Supervising provider: Silvino Fu MD Placed by: Fellow: Thanh Rainey MD Procedure prep: Preprocedure checklist: patient identified, procedure contraindications assessed, site marked, procedure consent, surgical consent, IV checked, risks, benefits and alternatives discussed, monitors and equipment checked and timeout performed Patient position: supine Procedure performed while patient: sedate with meaningful contact Monitoring: ECG, oximetry and blood pressure Supplemental O2: nasal cannula Prep solution: chlorhexidine/alcohol PPE: provider hat/mask, sterile gloves and sterile probe cover and gel Peripheral nerve block: Technique: ultrasound guided Needle type: insulated, short-bevel and echogenic Needle gauge: 20 G Needle length: 100 mm Injection assessment: injection made incrementally with constant monitoring, local visualized surrounding nerve on ultrasound, negative aspiration for heme, no paresthesias noted, normal resistance to injection and see flowsheet for medication details Assessment: Block success: full evaluation pending Events: patient tolerated procedure well with no complications Thanh Rainey MD ANESTHESIA ORDERABLES Final R esult * ND AN PROCEDURE PLACEHOLDER (08/26/2024 9:59 AM CDT) Narrative Silvino Fu MD - 08/26/2024 9:59 AM CDT Silvino uF MD 08/26/2024 11:10 AM Spinal Block Patient location: pre-op holding Reason for block: primary anesthetic Staff: Supervising provider: Silvino Fu MD Placed by: Fellow: Thanh Rainey MD Procedure prep: Preprocedure checklist: patient identified, procedure contraindications assessed, site marked, procedure consent, surgical consent, IV checked, risks, benefits and alternatives discussed, monitors and equipment checked and timeout performed Patient position: sitting Procedure performed while patient: sedate with meaningful contact Monitoring: ECG, oximetry and blood pressure Supplemental O2: nasal cannula Prep solution: chlorhexadine/alcohol PPE: provider hat/mask, sterile gloves and sterile drape Skin infiltrated with lidocaine 1%: yes Spinal: Approach: midline Introducer used: yes Location: L3-4 Spinal injection: CSF demonstrated, no aspiration of heme and no paresthesias noted Number of attempts: 1 Spinal Needle: Needle type: Nava Jose Needle gauge: 24 G Needle length: 9 cm Assessment: Sensory deficit - left: T10 Sensory deficit - right: T10 Events: patient tolerated procedure well with no complications Thanh Rainey MD ANESTHESIA ORDERABLES Final R esult from Last 3 Months Insurance [facility] CHOICE PLUS R [facility] OPEN ACCESS [employer] OPEN ACCESS Advance Directives For more information, please contact: [phone] * Full Code (Latest Code Status on File) Date Activated Date Inactivated Comments 08/26/2024 12:59 PM 08/26/2024 7:02 PM Care Teams Roentgenology Teacher Relationship Specialty Start Date End Date Greyson Truong MD [address] [facility] [address] [place] [id number] PCP - General 10/11/16 Leslye De La O OD [address] [address] Referring Physician Optometry 09/11/20
--- OUTSIDE RECORDS SUMMARY | 2024-11-16 12:19 | XMS_ITS | Referral Summary ---
Author Organization [facility] Address [address] [place] [address] Care Team Providers Care Admissions Clinician Name Role Phone Greyson Truong MD Primary Care Provider [phone] [phone] Leslye De La O OD Unavailable +1- [phone] Encounters Date Type Department Care Team Description 09/24/2024 8:34 AM CDT - 09/24/2024 11:59 PM CDT Hospital Encounter [facility] Radiology [address] [facility] [address] [place] [address] History of total knee arthroplasty, right; Orthopedic aftercare Discharge Disposition: Discharge to home or self care 09/24/2024 9:15 AM CDT Office Visit [facility] Orthopaedic Surgery [address] [facility] [address] [place] [phone] Sang Hogue MD Orthopedic aftercare (Primary Dx); History of total knee arthroplasty, right 08/26/2024 10:45 AM CDT - 08/26/2024 1:15 PM CDT Surgery [facility] [address] [place] [address] Sang Hogue MD ARTHROPLASTY KNEE - UNICOMPARTMENTAL - ANGELES ROBOTIC ARM DILMA 08/26/2024 10:05 AM CDT Anesthesia Event [facility] [address] [place] [address] Silvino Fu MD Thomas, Karen D., SUBWAY TRAIN OPERATOR 08/26/2024 7:51 AM CDT - 08/26/2024 2:52 PM CDT Hospital Encounter [facility] [address] [place] [address] Sang Hogue MD Primary osteoarthritis of right knee (Primary Dx) Discharge Disposition: Discharge to home or self care 08/19/2024 Orders Only [facility] Orthopaedic Surgery [address] [facility] [address] [place] [address] Sang Hogue MD Acute pain of right knee (Primary Dx) from Last 3 Months Allergies No known active allergies Medications atorvastatin [...] 04/18 Assessment & Plan (04/23/2024 8:24 AM BOX LINER): No flashes No RT/RD S/s of RD/RT discussed Assessment & Plan (04/18/2023 8:31 AM BOX LINER): No flashes No RT/RD S/s of RD/RT discussed Retinal hemorrhage, left eye 05/29/2020 Assessment & Plan (04/23/2024 8:24 AM BOX LINER): Mild peripheral IRH stable for many years Assessment & Plan (04/18/2023 8:31 AM BOX LINER): Mild peripheral IRH stable for many years [...] evaluate perfusion, but patient states that the automotive maintenance technician performed a second cardiac echo. Patient [...] observation Assessment & Plan (05/29/2020 2:09 PM BOX LINER): Periphery left eye (OS) only +also noted [...] 05/29/2020 Assessment & Plan (05/29/2020 2:05 PM BOX LINER): Sp strab sx X 2 both eyes (OU) at age 6 +RET on exam today -no diplopia -follow Peroneal tendinitis of right lower extremity Overview (02/23/2019): Added automatically from request for surgery [id number] Tendon tear 02/23/2019 Overview (02/23/2019): Added automatically from request for surgery [id number] Instability of right ankle joint 02/23/2019 Overview (02/23/2019): Added automatically from request for surgery [id number] Acquired cavovarus deformity of right foot 02/23 Overview (02/23/2019): Added automatically from request for surgery [id number] Bilateral degenerative progressive high myopia 0 09/18/2017 Glaucoma suspect of both eyes 09/18/2017 Nuclear sclerotic cataract of both eyes 09/19/19 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 Vitreous syneresis 10/13/2015 Assessment & Plan (05/29/2020 2:04 PM BOX LINER): With myopia -retina flat and attached both eyes (OU) -pt ed s/s retinal detachment (RD); RTC joao if noted Myopia 01/24/2012 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 Assessment & Plan (05/29/2020 2:04 PM BOX LINER): right eye (OD); stable -follow annually Immunizations Immunization Administration Dates Next Due Hep A, Adult 03/29/2014,03/26/1996 Hep B Vaccine 03/23/2007,09/25/2006,08/19/2006 Influenza, Quadrivalent, Spl it, Preservative Free, Intramuscular 02/21/2020 Influenza, Trivalent, IM (MDV) 03/29/2014,2011 Tdap 03/29/2014 Social History Tobacco Use Types Packs/Day Years [...] on file Legal Sex Male 3:55 AM BOX LINER Gender Identity Not on file Sexual Orientation Not on file Last Filed Vital Signs Vital Sign Reading [...] 08/26/2024 7:57 AM CDT Plan of Treatment Not on file Medical Devices Implanted Type Area Bag Liner Device Identifier Shelf Expiration Date Model / Serial / Lot [employer] Simplex P Full Dose Radiopaque Preblend Cement Bone Tobramycin 6197-9-010 - [id number] Implanted:Qty: 1 on 08/26/[address] [facility] Right: Knee [employer] 10/06/2025 6197-9-01 0 / / [id number] [employer] Insert Mck Tibial X3 Onlay Size 4 X 8mm [id number] - [id number] Implanted:Qty: 1 on 08/26/[address] [facility] Right: Knee [employer] 04/27/2029 [id number] / / [id number] [employer] Cmpnt Fem 5 Std Knee Condyle Right Medial Left Lat [id number] - [id number] Implanted:Qty: 1 on 08/26/[address] [facility] Right: Knee [employer] 06/30/2029 [id number] / [id number] / [id number] [employer] Tibial Baseplate Knee Right Medial Left Lateral Fixed Unicompartmental Restoris Size 4 [id number] - [id number] Implanted:Qty: 1 on 08/26/[address] [facility] Right: Knee [employer] 05/13/2029 [id number] / [id number] / [id number] Procedures Procedure Name Priority Date/Time Associated Diagnosis [...] of right knee Special Needs [place] [employer]ot [place] AN PROCEDURE PLACEHOLDER Routine 08/26/2024 10:00 AM CDT [place] AN PROCEDURE PLACEHOLDER Routine 08/26/2024 9:59 AM CDT [place] AN PROCEDURE PLACEHOLDER Routine 08/26/2024 9:59 AM [...] IMG XR PROCEDURES Final Re sult * [place] AN PROCEDURE PLACEHOLDER (08/26/2024 10:00 AM CDT) Silvino Simpson MD - 08/26/2024 10:00 AM CDT iSlvino Fu MD 08/26/2024 11:10 AM Peripheral Block [...] MD ANESTHESIA ORDERABLES Final R esult * [place] AN PROCEDURE PLACEHOLDER (08/26/2024 9:59 AM CDT) Silvino Simpson MD - 08/26/2024 9:59 AM CDT Silvino [...] MD ANESTHESIA ORDERABLES Final R esult * [place] AN PROCEDURE PLACEHOLDER (08/26/2024 9:59 AM CDT) Narrative Silvino Fu MD - 08/26/2024 9:59 AM CDT Silvino Fu MD 08/26/2024 11:10 AM Spinal Block Patient [...] R esult from Last 3 Months Insurance [facility] [place] [address] [place] [address] [facility] OPEN ACCESS [facility] H[facility]/PPO Address: [address] [place] [address] [employer] OPEN ACCESS Advance Directives For more information, please contact: [phone] * Full Code (Latest Code Status on File) Date Activated Date Inactivated Comments 08/26/2024 12:59 PM 08/26/2024 7:02 PM Care Teams Admissions Clinician Relationship Specialty Start Date End Date Greyson Truong MD [address] [address] PCP - General 10/11/16 Leslye De La O OD [facility] [address] [address] Referring Physician Optometry 09/11/20
== END ==
PROVIDERS: PCP Nurse Practitioner Family; Visit Provider Nurse Practitioner Family
DX: M25.512 Pain in left shoulder (principal); R05.3 Chronic cough
CPT/HCPCS: 71046; 73030

== ENCOUNTER 2025-01-28 08:30 | Outpatient (CLI) | payer OTHER, SELFPAY ==
--- OUTSIDE RECORDS SUMMARY | 2025-01-28 08:32 | XMS_ITS | Clinical Summary ---
Author Organization [facility] Address [address] [place] [address] Care Team Providers Care Fiber Design Engineer Name Role Phone Greyson Truong MD Primary Care Provider [phone] [phone] Leslye De La O OD Unavailable +1- [phone] Allergies No known active allergies Medications atorvastatin [...] by mouth daily 30 tablet 08/26/2024 Active fluticasone propionate (FLONASE) 50 mcg/actuation nasal spray INSTILL 1 SPRAY INTO EACH NOSTRIL TWICE DAILY 11/16/2024 Active amoxicillin 500 mg tablet/capsule TAKE 4 PILL 1 HOUR BEFORE DENTAL APPOINTMENT. 12 tablet/capsul e 12/03/2024 Active Active Problems Problem Noted Date Diagnosed Date Osteoarthritis of right knee , unspecified osteoarthritis type 08/26/2024 Primary osteoarthritis of right knee 06/22/2024 PVD (posterior vitreous detachment), right 04/18 Assessment & Plan (04/23/2024 8:24 AM SWING TYPE LATHE OPERATOR): No flashes No RT/RD S/s of RD/RT discussed Assessment & Plan (04/18/2023 8:31 AM SWING TYPE LATHE OPERATOR): No flashes No RT/RD S/s of RD/RT discussed Retinal hemorrhage, left eye 05/29/2020 Assessment & Plan (04/23/2024 8:24 AM SWING TYPE LATHE OPERATOR): Mild peripheral IRH stable for many years Assessment & Plan (04/18/2023 8:31 AM SWING TYPE LATHE OPERATOR): Mild peripheral IRH stable for many years [...] evaluate perfusion, but patient states that the traffic control technician performed a second cardiac echo. Patient [...] observation Assessment & Plan (05/29/2020 2:09 PM SWING TYPE LATHE OPERATOR): Periphery left eye (OS) only +also noted [...] 05/29/2020 Assessment & Plan (05/29/2020 2:05 PM SWING TYPE LATHE OPERATOR): Sp strab sx X 2 both eyes (OU) at age 6 +RET on exam today -no diplopia -follow Peroneal tendinitis of right lower extremity Overview (02/23/2019): Added automatically from request for surgery [id number] Tendon tear 02/23/2019 Overview (02/23/2019): Added automatically from request for surgery [id number] Instability of right ankle joint 02/23/2019 Overview (02/23/2019): Added automatically from request for surgery [id number] Acquired cavovarus deformity of right foot 02/23 Overview (02/23/2019): Added automatically from request for surgery [id number] Bilateral degenerative progressive high myopia 0 09/18/2017 Glaucoma suspect of both eyes 09/18/2017 Nuclear sclerotic cataract of both eyes 09/19/19 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 [address] [place] [id number] Abeba Bravo NP Orthopedic aftercare (Primary Dx) 12/03/2024 7:30 AM CDT - 12/03/2024 11:59 PM CDT Hospital Encounter [facility] Radiology [address] [facility] [address] [place] [id number] Orthopedic aftercare Discharge Disposition: Discharge to home or self care from Last 3 Months Immunizations Immunization Administration [...] on file Legal Sex Male 3:55 AM SWING TYPE LATHE OPERATOR Gender Identity Not on file Sexual Orientation [...] (2 - Td or Tdap) 03/29/2024 03/29/2014 Influenza Vaccine (#1) 2025 , 02/21/2020, 03/29/2014, Additional history exists Hepatitis B Screening Completed 03/23/2007 , 09/25/2006, 08/19/2006 Pneumococcal vaccine <65 Aged Out No longer eligible based on patient's age to complete this topic Medical Devices Implanted Type Area Scrubber System Attendant Device Identifier Shelf Expiration Date Model / Serial / Lot [employer] Simplex P Full Dose Radiopaque Preblend Cement Bone Tobramycin 6197-9-010 - [id number] Implanted:Qty: 1 on 08/26/2024 at [facility] Right: Knee [employer] 10/06/2025 6197-9-01 0 / / [id number] [employer] Insert Mck Tibial X3 Onlay Size 4 X 8mm [id number] - [id number] Implanted:Qty: 1 on 08/26/2024 at [facility] Right: Knee [employer] 04/27/2029 [id number] / / [id number] [employer] Cmpnt Fem 5 Std Knee Condyle Right Medial Left Lat [id number] - [id number] Implanted:Qty: 1 on 08/26/2024 at [facility] Right: Knee [employer] 06/30/2029 [id number] / [id number] / [id number] [employer] Tibial Baseplate Knee Right Medial Left Lateral Fixed Unicompartmental Restoris Size 4 [id number] - [id number] Implanted:Qty: 1 on 08/26/2024 at [facility] Right: Knee [employer] 05/13/2029 [id number] / [id number] / [id number] Procedures Procedure Name Priority Date/Time Associated Diagnosis Comments XR KNEE RIGHT 3 VIEWS Schedule Routine, Read Routine (OP Routine) 12/03/2024 7:48 AM CDT Orthopedic aftercare from Last 3 Months Results * XR Knee Right 3 Views (12/03/2024 7:48 AM CDT) Anatomical Region Laterality Modality Lower Extremities, Knee Right Computed Radiography 12/03/2024 7:58 AM CDT Impressions 12/03/2024 7:58 AM CDT Unchanged medial unicompartmental right knee arthroplasty in expected position. Electronically signed by: Bladimir Crump D.O. Narrative 12/03/2024 7:58 AM CDT EXAMINATION: XR KNEE RIGHT 3 VIEWS HISTORY: JOINT PAIN, KNEE COMPARISON: Radiographs 09/24/2024 FINDINGS: Medial unicompartmental right knee arthroplasty in expected position. No osteolysis, periprosthetic fracture, or subsidence. Decreased small to moderate knee effusion. Pin tracts in the proximal tibia and distal tibia. Procedure Note Bladimir Crump DO - 12/03/2024 EXAMINATION: XR KNEE RIGHT 3 VIEWS HISTORY: JOINT PAIN, KNEE COMPARISON: Radiographs 09/24/2024 FINDINGS: Medial unicompartmental right knee arthroplasty in expected position. No osteolysis, periprosthetic fracture, or subsidence. Decreased small to moderate knee effusion. Pin tracts in the proximal tibia and distal tibia. IMPRESSION: Unchanged medial unicompartmental right knee arthroplasty in expected position. Electronically signed by: Bladimir Crump D.O. Abeba Bravo DOCUMENT REVIEW ATTORNEY IMG XR PROCEDURES Final R esult from Last 3 Months Insurance [facility] CHOICE PLUS [address] [facility] OPEN ACCESS [facility] HMO/PPO Address: [facility] [address] [place] [address] [facility] OPEN ACCESS Advance Directives For more information, please contact: [phone] * Full Code (Latest Code Status on File) Date Activated Date Inactivated Comments 08/26/2024 12:59 PM 08/26/2024 7:02 PM Care Teams Fiber Design Engineer Relationship Specialty Start Date End Date Greyson Truong MD [address] [address] PCP - General 10/11/16 Leslye De La O OD [address] [address] Referring Physician Optometry 09/11/20
--- NOTE | 2025-01-28 14:02 | WPDPFTINT ---
PFT Procedure Performed PFT Procedure Performed Spirometry with Pre/Post Bronchodilator Plethysmography (Lung Vol) Diffusing Cap (DLCO) Flow Vol Loop PFT Interpretation This is a pulmonary function test with pre and post-bronchodilator spirometry, plethysmography and diffusing capacity. The test was performed and results interpreted in accordance with the 2019 and 2005 ATS/ERS Task Force guidelines respectively using the Global Lung Function Initiative-2012 reference equations. Patient demonstrated good effort and cooperation. Reproducibility criteria were met. The quality of the pre bronchodilator spirometry maneuver was Grade A and post bronchodilator spirometry maneuver was Grade A. Of note, the patient had a cough post bronchodilator. Findings: Spirometry: The contour the inspiratory and expiratory flow tracing are normal. The pre bronchodilator FVC is 4.31 L, 109% predicted. The pre bronchodilator FEV1 is 3.22 L, 105% predicted. The pre bronchodilator FEV1: FVC ratio is 75%. The post bronchodilator FVC is 4.25 L, representing a 1% decrease. The post bronchodilator FEV1 is 3.21 L, representing no change. The post bronchodilator FEV1: FVC ratio is 75%. Plethysmography: The total lung capacity is 8.35 L, 134% predicted. The functional residual capacity is 4.96 L, 155% predicted. The residual volume is 3.98 L, 190% predicted. The residual volume: Total lung capacity ratio is 48%. Diffusing capacity: The diffusing capacity unadjusted for hemoglobin and carboxyhemoglobin is 24.8, 95% predicted. The diffusing capacity adjusted for alveolar volume is 3.96, 90% predicted. Impression: The spirometry is normal without evidence of an obstructive abnormality. There is no significant improvement after inhaling a single dose of albuterol. The increase in residual volume to total lung volume ratio is consistent with hyperinflation. The diffusing capacity is normal. There are no prior studies for comparison
== END 2025-01-28 08:31 | disposition home or self-care (01) ==
LOC: ANHPFT 08:30
PROVIDERS: PCP Nurse Practitioner Family; Visit Provider Nurse Practitioner Family
DX: R05.3 Chronic cough (principal)
CPT/HCPCS: 94060; 94726; 94729